=== PATIENT | female | born 1995 | race Caucasian/White ===

== ENCOUNTER 2016-06-19 19:55 | Emergency (ER) | payer MEDICAID, OTHER ==
[~2016-06-19] VITALS: Ht 160 cm; Wt 62.6 kg
[~2016-06-19 19:55] MED LIST: FLUO10CA19 PO; HYDR1TAB66 PO; METR55GE TP; ONDA4TAB8 PO; PNV11TAB5 PO; [UNRECOGNIZED DRUG - OTHER]
--- OUTSIDE RECORDS SUMMARY | 2016-06-19 20:02 | XMS REPORT ---
Author TORRI Talley Organization [employer] Address Unknown Phone Unavailable Care Team Providers Care Upkeep Mechanic Name Role Phone TORRI LOZANO CP Unavailable Allergies, Adverse Reactions, Alerts Substance Reaction Event Type N.K.D.A. Info Not Available Non Drug Allergy Problems Problem Type Condition Code Onset Dates Condition Status Assessment Stress headaches F45.41 Active Assessment Family history of Vickie thyroiditis Z83.49 Active Assessment Anxiety F41.9 Active Problem Stress headaches F45.41 Active Problem Right upper quadrant abdominal pain R10.11 Active Problem Anxiety F41.9 Active Problem GARDASIL (HPV) DX V04.89 Active Problem Screening examination for pulmonary tuberculosis V74.1 Active Problem Depressive disorder F32.9 Active Problem Generalized anxiety disorder F41.1 Active Medications Medication Code System Code Instructions Start Date End Date Status Dosage Topamax [facility] [place] [address]-76 50 mg Orally Twice a day July 16, 2015 1 tablet Effexor XR [facility] [place] [address]-59 75 MG Orally Once a day July 16, 2015 1 capsule with food Procedures Procedure Coding System Code Date ASSAY OF FREE THYROXINE CPT-4 06353 Feb 11, 2016 VENIPUNCT, ROUTINE* CPT-4 80818 Feb 11, 2016 ASSAY THYROID STIM HORMONE CPT-4 01696 Feb 11, 2016 Office Visit, Est Pt., Level 4 CPT-4 53731 Feb 11, 2016 Vital Signs Date/Time: Feb 11, 2016 Cardiac Monitoring Heart Rate 76 bpm Weight 143.9 lbs Height 63 in Wt Percentile 73.56 % BMI 25.49 Index Blood Pressure Diastolic 68 mmHg Blood Pressure Systolic 102 mmHg BMIPercentile 80.87 % Results Name Result Date Reference Range Unit Abnormality Flag ROUTINE VENIPUNCTURE Summary Purpose [employer] Submission
[2016-06-19 20:23] LABS: BILIRUBIN,URINE NEGATIVE (NEGATIVE); KETONES,URINE NEGATIVE (NEGATIVE); LEUKOCYTE ESTERASE ,URINE NEGATIVE (NEGATIVE); NITRITE,URINE NEGATIVE (NEGATIVE); PH,URINE 6 (5-9); PROTEIN,URINE NEGATIVE (NEGATIVE); UROBILINOGEN,URINE NORMAL (NORMAL)
--- NOTE | 2016-06-19 21:11 | ED GU-Female ---
General Chief Complaint: -Female Stated Complaint: VAGINAL BLEEDING,ABD PAIN Nursing Triage Note: PATIENT REPORTS VAGINAL BLEEDING STARTING YESTERDAY AND ABDOMEN CRAMPS STARTING TODAY, PATIENT REPORTS SHE IS ABOUT 9 WEEKS GESTATION Nursing Sepsis Screen: No Definite Risk Source: patient, family (mother and sister) Exam Limitations: no limitations History of Present Illness Time seen by provider: 21:11 Initial Comments 21-year-old female patient presents to the emergency department complaints of vaginal bleeding beginning yesterday with abdominal cramping beginning today. Denies abnormal vaginal discharge. Patient states she is approximately 9 weeks gestation. Was seen by Dr. Ulola 06/02/16 with ultrasound confirming intrauterine . Timing/Duration: yesterday, other (improved) Severity/Quality: cramping Location: suprapubic Radiation: none Activities at Onset: none Prior Genitourinary Problems: similar symptoms Sexual [place] History: less than 2 months ago, single partner Modifying Factors: Worsens With Other (denies modifying factors.) Allergies and Home Medications Allergies Coded Allergies: No Known Drug Allergies (Unverified , 10/18/12) Home Medications Ondansetron 8 Mg Tab.rapdis #10 8 MG PO Q6H PRN PRN NAUSEA Prescribed by: MICHELE PADRON on 06/19/162140 Pwl897/FA/Omega3/Dha/Fish Oil 1 Each Tab.chew 1 EACH PO (Reported) Constitutional: no symptoms reported Respiratory: no symptoms reported Cardiovascular: no symptoms reported Gastrointestinal: see HPI abdominal pain (suprapubic abdominal cramping)No constipation, No diarrhea, nauseaNo vomiting Genitourinary: see HPIdenies burning, denies dysuria, denies frequency, denies flank pain, denies hematuria, pain (suprapubic abdominal cramping) other (vaginal bleeding yesterday, resolved today) Musculoskeletal: no symptoms reported Skin: no symptoms reported Psychiatric/Neurological: No Symptoms Reported All Other Systemes Reviewed Negative Unless Noted: Yes (Negative excepted noted.) Past Uunytps-Kpoefs-Seejgt Hx Patient Social History Alcohol Use: Denies Use Recreational Drug Use: No Smoking Status: Never a Smoker Recent Foreign Travel: No Contact w/Someone Who Travel: No Recent Infectious Disease Expo: No Recent Hopitalizations: No Seasonal Allergies Seasonal Allergies: No Surgeries HX Surgeries: No Respiratory Hx Respiratory Disorders: No Cardiovascular Hx Cardiac Disorders: No Neurological Hx Neurological Disorders: No Reproductive System : Yes Hx : 2 Hx Para: 0 Hx Total # of Abortions (Spona: 1 Hx Reproductive Disorders: Yes (mother reports patient had elevated testosterone leves as an adolescent.) Sexually Transmitted Disease: No HIV/AIDS: No Genitourinary Hx Genitourinary Disorders: No Gastrointestinal Hx Gastrointestinal Disorders: No Musculoskeletal Hx Musculoskeletal Disorders: No Endocrine Hx Endocrine Disorders: No HEENT HX ENT Disorders: No Cancer Hx Cancer: No Psychosocial Hx Psychiatric Problems: No Integumentary HX Skin/Integumentary Disorder: No Blood Transfusions Hx Blood Disorders: No Adverse Reaction to a Blood Tr: No (If yes, explain the reaction) Reviewed Nursing Assessment Reviewed/Agree w Nursing PMH: Yes Family Medical History Significant Family History: Heart Disease, Cancer, Diabetes, Psychiatric Problems Physical Exam Vital Signs Vital Sign - Last 12Hours 06/19/16 20:03 Temp 98.9 Pulse 90 Resp 18 B/P 130/92 Pulse Ox 98 Capillary Refill : Less Than 3 Seconds General Appearance: WD/WN no apparent distress HEENT: PERRL/EOMI pharynx normal Neck: supple normal inspection Cardiovascular: normal peripheral pulses regular rate, rhythm no edema no murmur Respiratory: lungs clear normal breath sounds no respiratory distress Gastrointestinal: normal bowel sounds non tender soft no organomegalyNo distended Back: normal inspection no CVA tenderness Extremities: normal inspection no pedal edema normal capillary refill Neurologic/Psychiatric: alert normal mood/affect oriented x 3 Skin: normal color warm/dry Progress/Results/Core Measures Results/Orders Lab Results Laboratory Tests Test 06/19/16 20:10 06/19/16 20:31 Range/Units Urine Bacteria NONE /HPF Urine Bilirubin NEGATIVE NEGATIVE Urine Casts NONE /LPF Urine Clarity CLEAR Urine Color YELLOW Urine Crystals NONE /LPF Urine Culture Indicated NO Urine Glucose (UA) NEGATIVE NEGATIVE Urine Ketones NEGATIVE NEGATIVE Urine Leukocyte Esterase NEGATIVE NEGATIVE Urine Mucus NEGATIVE /LPF Urine Nitrite NEGATIVE NEGATIVE Urine Protein NEGATIVE NEGATIVE Urine RBC NONE /HPF Urine RBC (Auto) NEGATIVE NEGATIVE Urine Specific [place] 1.010 L 1.016-1.022 Urine Squamous Epithelial Cells 2-5 /HPF Urine Urobilinogen NORMAL NORMAL MG/DL Urine WBC NONE /HPF Urine pH 6 5-9 Human Chorionic Gonadotropin, Quant < 5 <5 MIU/ML My Orders Orders-MICHELE PADRON Hcg,Quantitative (06/19/16 20:19) Us Ob Single Fetus<14 [id number] (06/19/16 20:19) Rx-Ondansetron Po (Rx-Zofran Po) (06/19/16 21:43) Vital Signs/I&O Blood Pressure Mean: 105 Point of Care Testing Urine -Bedside: Negative Diagnostic Imaging Diagonstic Imaging: Ultrasound Plain Films/CT/US/NM/MRI: pelvis Comments FINDINGS: The uterus measures 6.8 cm in length x 4.6 cm in transverse diameter x 3.3 cm in AP dimension. There is no evidence of intra or extrauterine on the transpelvic examination. No focal myometrial masses are seen. The endometrial echo stripe has a normal appearance and measures 9 mm in AP thickness. Included portions of the cervix are unremarkable as well. No adnexal masses or free fluid are seen. Left ovary cannot be adequately visualized. Right ovary has a normal appearance and measures 3 x 2 x 2.4 cm. IMPRESSION: No evidence of intra or extrauterine is identified at this time. Please correlate clinically with serial beta-hCG levels. If clinically indicated, short interval follow-up may be obtained. Dictated on workstation # [id number] Reviewed: Reviewed by Me (radiology report reviewed by me) Departure Communication Progress Notes Laboratory and diagnostic findings discussed with the patient. Plan for discharge home with follow-up as an outpatient this week with Dr. Ulloa. All return precautions were discussed with the patient as described in the discharge instructions of this report. Patient voices understanding and agrees with the treatment plan. Patient case discussed with Dr. Connor, he agrees with the plan of care. Impression Impression: Primary Impression: Spontaneous miscarriage Disposition: 01 HOME, SELF-CARE Condition: Improved Departure-Patient Inst. Decision time for Depature: 21:40 Referrals: [facility] (PCP/Family) Primary Care Physician YONNY ULLOA DO Patient Instructions: Dealing With Miscarriage, Miscarriage (DC) Add. Discharge Instructions: All discharge instructions reviewed with patient and/or family. Voiced understanding. Medications as instructed. Tylenol [id number] as directed for pain or cramping. Ibuprofen 600 mg by mouth every 6-8 hours as needed for pain or cramping. Drink plenty of fluids. No intercourse, tampons, or douching until released by Dr. Ulloa. Follow-up with Dr. Ulloa as an outpatient, call for appointment time tomorrow morning. Return to the emergency department for worsened pain, vaginal bleeding with greater than 2 pads per hour for greater than 2 hours, vaginal discharge, or any other concerns. Scripts Ondansetron (Ondansetron Odt)8 Mg Tab.rapdis8 Mg PO Q6H PRN NAUSEA #10 TAB Ref 0 Prov:MICHELE PADRON 06/19/16 Work/School Note: Work Release Form Date Seen in the Emergency Department: Jun 19, 2016 Return to Work: Jun 22, 2016 Restrictions: No Restrictions MICHELE PADRON Jun 19, 2016 21:11
--- NOTE | 2016-06-19 21:32 | Diagnostic Imaging Report ---
INDICATION: First trimester vaginal bleeding. COMPARISON: None. TECHNIQUE: Transpelvic sonography was obtained. FINDINGS: The uterus measures 6.8 cm in length x 4.6 cm in transverse diameter x 3.3 cm in AP dimension. There is no evidence of intra or extrauterine on the transpelvic examination. No focal myometrial masses are seen. The endometrial echo stripe has a normal appearance and measures 9 mm in AP thickness. Included portions of the cervix are unremarkable as well. No adnexal masses or free fluid are seen. Left ovary cannot be adequately visualized. Right ovary has a normal appearance and measures 3 x 2 x 2.4 cm. IMPRESSION: No evidence of intra or extrauterine is identified at this time. Please correlate clinically with serial beta-hCG levels. If clinically indicated, short interval follow-up may be obtained. Dictated by: Dictated on workstation # [id number]
[2016-06-19] MEDS ORDERED: ONDA8TAB13 PO (21:41)
[2016-06-19] MEDS ORDERED: RX-ONDANSETRON 4 MG ODT (ZOFRAN) PPK #4 PO STA (21:43)
[2016-06-19 21:48] VITALS: BP 129/76
== END 2016-06-19 21:51 | disposition home or self-care (01) ==
LOC: EDUNIT# 19:55 → ER 19:58
DX: O03.9 Complete or unspecified spontaneous abortion without complication (principal); Z3A.09 9 weeks gestation of pregnancy
CPT/HCPCS: 36415; 76801; 81000; 84702; 84703; 99282

== ENCOUNTER 2016-10-15 16:00 | Emergency (ER) | payer MEDICAID ==
[~2016-10-15] VITALS: Ht 162.6 cm; Wt 68.0 kg
[~2016-10-15 16:00] MED LIST changes: +ONDA8TAB13 PO
--- NOTE | 2016-10-15 16:29 | ED Cardiac General ---
History of Present Illness General Stated Complaint: CHEST PAIN Source: patient Exam Limitations: no limitations History of Present Illness Time seen by provider: 16:26 Initial Comments To ER with chest pain and shortness of breath for 3 days. The pain has been intermittent and random but the shortness of breath seems to be consistently brought on by activity. Her concern is that her grandmother has a history of heart problems (pt does not know what kind but believes it to be valvular that began around the age of 31). No unilateral leg swelling. No history of this before, denies palpitations, denies syncope or near syncope. Timing/Duration: intermittent, 2-3 days Severity: moderate NTG SL PNEUMATIC TOOL REPAIRER: No ASA po PNEUMATIC TOOL REPAIRER: No Associated Systoms: Diaphoresis Allergies and Home Medications Allergies Coded Allergies: No Known Drug Allergies (Unverified , 10/18/12) Home Medications Ondansetron 8 Mg Tab.rapdis, 8 MG PO Q6H PRN for NAUSEA, #10 Ref 0 Prescribed by: MICHELE PADRON on 06/19/162140 Pjz406/FA/Omega3/Dha/Fish Oil 1 Each Tab.chew, 1 EACH PO, (Reported) Review of Systems Constitutional: see HPI EENTM: No Symptoms Reported Respiratory: No Symptoms Reported Cardiovascular: See HPI, Chest Pain, Denies Edema, Denies Irregular Heart Rate , Denies Lightheadedness, Denies Palpitations, Denies Syncope Gastrointestinal: See HPI Genitourinary: No Symptoms Reported Musculoskeletal: no symptoms reported Skin: no symptoms reported Psychiatric/Neurological: No Symptoms Reported Endocrine: No Symptoms Reported Past Dsqcwzx-Sppvqp-Alzyxz Hx Patient Social History Recent Foreign Travel: No Contact w/Someone Who Travel: No Recent Hopitalizations: No Seasonal Allergies Seasonal Allergies: No Surgeries HX Surgeries: No Respiratory Hx Respiratory Disorders: No Cardiovascular Hx Cardiac Disorders: No Neurological Hx Neurological Disorders: No Reproductive System Hx Reproductive Disorders: Yes (mother reports patient had elevated testosterone leves as an adolescent.) Sexually Transmitted Disease: No HIV/AIDS: No Genitourinary Hx Genitourinary Disorders: No Gastrointestinal Hx Gastrointestinal Disorders: No Musculoskeletal Hx Musculoskeletal Disorders: No Endocrine Hx Endocrine Disorders: No HEENT HX ENT Disorders: No Cancer Hx Cancer: No Psychosocial Hx Psychiatric Problems: No Integumentary HX Skin/Integumentary Disorder: No Blood Transfusions Hx Blood Disorders: No Adverse Reaction to a Blood Tr: No (If yes, explain the reaction) Family Medical History Significant Family History: Heart Disease, Cancer, Diabetes, Psychiatric Problems Physical Exam Vital Signs Vital Sign - Last 12Hours 10/15/16 16:30 Temp 97.5 Pulse 52 Resp 16 B/P (MAP) 129/56 O2 Delivery Room Air Capillary Refill : General Appearance: No Apparent Distress, WD/WN HEENT: PERRL/EOMI, TMs Normal Neck: Full Range of Motion, Normal Inspection Respiratory: No Accessory Muscle Use, No Respiratory Distress Cardiovascular: Regular Rate, Rhythm, No Edema, No Gallop, No Murmur Gastrointestinal: Normal Bowel Sounds, Non Tender, Soft Extremity: Normal Capillary Refill, Non Tender Neurologic/Psychiatric: Alert, Oriented x3, No Motor/Sensory Deficits Skin: Normal Color, Warm/Dry Progress/Results/Core Measures Results/Orders Lab Results Laboratory Tests Test 10/15/16 16:45 10/15/16 17:03 Range/Units White Blood Count 10.2 4.3-11.0 10^3/uL Red Blood Count 4.79 4.35-5.85 10^6/uL Hemoglobin 13.2 11.5-16.0 G/DL Hematocrit 42 35-52 % Mean Corpuscular Volume 87 80-99 FL Mean Corpuscular Hemoglobin 28 25-34 PG Mean Corpuscular Hemoglobin Concent 32 32-36 G/DL Red Cell Distribution Width 13.5 10.0-14.5 % Platelet Count 347 130-400 10^3/uL Mean Platelet Volume 9.5 7.4-10.4 FL Neutrophils (%) (Auto) 71 42-75 % Lymphocytes (%) (Auto) 20 12-44 % Monocytes (%) (Auto) 9 0-12 % Eosinophils (%) (Auto) 1 0-10 % Basophils (%) (Auto) 0 0-10 % Neutrophils # (Auto) 7.2 1.8-7.8 X 10^3 Lymphocytes # (Auto) 2.0 1.0-4.0 X 10^3 Monocytes # (Auto) 0.9 0.0-1.0 X 10^3 Eosinophils # (Auto) 0.1 0.0-0.3 10^3/uL Basophils # (Auto) 0.0 0.0-0.1 10^3/uL D-Dimer 0.30 0.00-0.49 UG/ML Sodium Level 139 135-145 MMOL/L Potassium Level 3.4 L 3.6-5.0 MMOL/L Chloride Level 105 98-107 MMOL/L Carbon Dioxide Level 22 21-32 MMOL/L Anion Gap 12 5-14 MMOL/L Blood Urea Nitrogen 14 7-18 MG/DL Creatinine 0.73 0.60-1.30 MG/DL Estimat Glomerular Filtration Rate > 60 BUN/Creatinine Ratio 19 0-20 Glucose Level 82 70-105 MG/DL Calcium Level 9.7 8.5-10.1 MG/DL Total Bilirubin 0.4 0.1-1.0 MG/DL Aspartate Amino Transf (AST/SGOT) 19 5-34 U/L Alanine Aminotransferase (ALT/SGPT) 12 0-55 U/L Alkaline Phosphatase 71 40-136 U/L Troponin I < 0.30 <0.30 NG/ML Total Protein 8.0 6.4-8.2 GM/DL Albumin 4.2 3.2-4.5 GM/DL Urine Color YELLOW Urine Clarity CLEAR Urine pH 6 5-9 Urine Specific [place] 1.020 1.016-1.022 Urine Protein NEGATIVE NEGATIVE Urine Glucose (UA) NEGATIVE NEGATIVE Urine Ketones NEGATIVE NEGATIVE Urine Nitrite NEGATIVE NEGATIVE Urine Bilirubin NEGATIVE NEGATIVE Urine Urobilinogen 1 NORMAL MG/DL Urine Leukocyte Esterase NEGATIVE NEGATIVE Urine RBC (Auto) 2+ H NEGATIVE Urine RBC NONE /HPF Urine WBC NONE /HPF Urine Squamous Epithelial Cells 5-10 /HPF Urine Crystals NONE /LPF Urine Bacteria TRACE /HPF Urine Casts NONE /LPF Urine Mucus NEGATIVE /LPF Urine Culture Indicated NO Urine Opiates Screen NEGATIVE NEGATIVE Urine Oxycodone Screen NEGATIVE NEGATIVE Urine Methadone Screen NEGATIVE NEGATIVE Urine Propoxyphene Screen NEGATIVE NEGATIVE Urine Barbiturates Screen NEGATIVE NEGATIVE Ur Tricyclic Antidepressants Screen NEGATIVE NEGATIVE Urine Phencyclidine Screen NEGATIVE NEGATIVE Urine Amphetamines Screen NEGATIVE NEGATIVE Urine Methamphetamines Screen NEGATIVE NEGATIVE Urine Benzodiazepines Screen NEGATIVE NEGATIVE Urine Cocaine Screen NEGATIVE NEGATIVE Urine Cannabinoids Screen POSITIVE H NEGATIVE My Orders Orders - MELI GUTIERRES APRN Cbc With Automated Diff (10/15/16 16:25) Saline Lock/Iv-Start (10/15/16 16:25) Ua Culture If Indicated (10/15/16 16:25) Drug Screen Stat (Urine) (10/15/16 16:25) Urine Bedside (10/15/16 16:25) Ekg Tracing (10/15/16 16:25) Chest Pa/Lat (2 View) (10/15/16 16:25) Fibrin Degradation Products (10/15/16 16:25) Comprehensive Metabolic Panel (10/15/16 16:25) Troponin I (10/15/16 16:25) Vital Signs/I&O Vital Sign - Last 12Hours 10/15/16 16:30 Temp 97.5 Pulse 52 Resp 16 B/P (MAP) 129/56 O2 Delivery Room Air Departure Impression Impression: Primary Impression: Dyspnea on exertion Additional Impression: Chest pain Disposition: HOME, SELF-CARE Condition: Stable Departure-Patient Inst. Decision time for Depature: 17:34 Referrals: [facility] (PCP/Family) Primary Care Physician Patient Instructions: Chest Pain (DC) Add. Discharge Instructions: 1. Follow-up with your family doctor if this pain persists for further evaluation such as with an echocardiogram 2. Return to ER for any concerns MELI GUTIERRES APRN Oct 15, 2016 16:28
[2016-10-15 17:00] LABS: BASOPHILS % (AUTO) 0 % (0-10); EOSINOPHILS # (AUTO) 0.1 10^3/uL (0.0-0.3); EOSINOPHILS % (AUTO) 1 % (0-10); LYMPHOCYTES % (AUTO) 20 % (12-44); MEAN CORPUSCULAR HEMOGLOBIN 28 PG (25-34); MEAN CORPUSCULAR HGB CONC 32 G/DL (32-36); MEAN CORPUSCULAR VOLUME 87 FL (80-99); MEAN PLATELET VOLUME 9.5 FL (7.4-10.4); MONOCYTES # (AUTO) 0.9 X 10^3 (0.0-1.0); MONOCYTES % (AUTO) 9 % (0-12); NEUTROPHILS # (AUTO) 7.2 X 10^3 (1.8-7.8); NEUTROPHILS % (AUTO) 71 % (42-75); PLATELET COUNT 347 10^3/uL (130-400); RED BLOOD COUNT 4.79 10^6/uL (4.35-5.85); RED CELL DISTRIBUTION WIDTH 13.5 % (10.0-14.5); WHITE BLOOD COUNT 10.2 10^3/uL (4.3-11.0)
[2016-10-15 17:11] LABS: BILIRUBIN,URINE NEGATIVE (NEGATIVE); KETONES,URINE NEGATIVE (NEGATIVE); LEUKOCYTE ESTERASE ,URINE NEGATIVE (NEGATIVE); NITRITE,URINE NEGATIVE (NEGATIVE); PH,URINE 6 (5-9); PROTEIN,URINE NEGATIVE (NEGATIVE); UROBILINOGEN,URINE 1 MG/DL (NORMAL)
[2016-10-15 17:26] LABS: ALANINE AMINOTRANSFERASE 12 U/L (0-55); ALBUMIN 4.2 GM/DL (3.2-4.5); ANION GAP 12 MMOL/L (5-14); ASPARTATE AMINO TRANSFERASE 19 U/L (5-34); BILIRUBIN,TOTAL 0.4 MG/DL (0.1-1.0); BLOOD UREA NITROGEN 14 MG/DL (7-18); BUN/CREATININE RATIO 19 (0-20); CALCIUM 9.7 MG/DL (8.5-10.1); CARBON DIOXIDE 22 MMOL/L (21-32); CHLORIDE 105 MMOL/L (98-107); CREATININE SERUM 0.73 MG/DL (0.60-1.30); GFR ESTIMATED > 60; GLUCOSE 82 MG/DL (70-105); HEMOLYSIS 3 (-100-29); ICTERUS 0.4 (-100-1.9); LIPEMIA 3 (-100-49); POTASSIUM 3.4 MMOL/L (3.6-5.0); SODIUM 139 MMOL/L (135-145)
[2016-10-15 17:32] LABS: TROPONIN I < 0.30 NG/ML (<0.30)
--- NOTE | 2016-10-15 17:38 | Diagnostic Imaging Report ---
INDICATION: Chest pain, shortness of breath for three days. EXAMINATION: Two-view chest, 10/15/2016. FINDINGS: There is a vague increased density in the right infrahilar region the remaining lungs clear. No effusions or infiltrates noted. The heart and pulmonary vasculature appear unremarkable. IMPRESSION: Increased density in the right infrahilar region which could be due to superimposed vascular and osseous structures. An early infiltrate or atelectasis is also possible. Remaining chest is unremarkable. Dictated by: Dictated on workstation # [id number]
[2016-10-15 17:50] VITALS: BP 136/64
== END 2016-10-15 17:50 | disposition home or self-care (01) ==
LOC: EDUNIT# 16:00 → ER 16:01
DX: R07.89 Other chest pain (principal); R06.09 Other forms of dyspnea
CPT/HCPCS: 36415; 71020; 80053; 80306; 81000; 84484; 84703; 85025; 85379; 93005